=== PATIENT | male | born 1960 | race Caucasian/White ===

== ENCOUNTER → 2017-01-12 | Outpatient (CLI) | payer BC ==
--- NOTE | 2017-01-12 11:30 | CT ---
EXAMINATION TYPE: CT ChestAbdPelvis w con DATE OF EXAM: 01/12/2017 9:33 AM COMPARISON: Previous study dated 01/21/2016. HISTORY: Colon cancer CT DLP: 2362.80 mGycm Automated exposure control for dose reduction was used. TECHNIQUE: Helical acquisition through the abdomen and pelvis was obtained without oral contrast but following the intravenous administration of 100 ml mL of Omnipaque 300. The data was formatted in th e axial, coronal and sagittal projections. FINDINGS: The lungs are clear. There is no significant axillary, mediastinal or hilar adenopathy. There is no pleural or pericardial fluid. The heart is not enlarged. There is mild, bilateral gynecomastia. Within the abdomen, the liver is prominent measuring 19 cm. The spleen and gallbladder appear normal. Both adrenal glands appear normal. The pancreas is unremarkable. Both kidneys demonstrate function and appear morphologically normal. There is no significant retroperitoneal, iliac or inguinal adenopathy. There is been a previous sigmoid resection. The resection line appears unremarkable. The remainder of the colon appears normal. The appendix is not visualized. Small bowel loops appear normal. There is no free air and no free fluid identified. There is degenerative disc disease as well as hypertrophic spondylosis within the spine. There are de generative changes in both hips. No bony destructive lesion is seen. IMPRESSION: 1. NO EVIDENCE OF RECURRENT MALIGNANCY OR METASTATIC DISEASE. 2. MILD, BILATERAL GYNECOMASTIA. 3. MILD HEPATOMEGALY. 4. POSTOPERATIVE CHANGE. 5. DEGENERATIVE CHANGES IN THE HIPS AND SPINE.
== END | disposition home or self-care (01) ==
LOC: RADCTMAIN 08:59
PROVIDERS: ATTEND Internal Medicine Hematology & Oncology
DX: C18.7 Malignant neoplasm of sigmoid colon (principal); N62 Hypertrophy of breast; R16.0 Hepatomegaly, not elsewhere classified; Z98.890 Other specified postprocedural states
CPT/HCPCS: 71260; 74177; Q9967

== ENCOUNTER → 2018-01-11 | Outpatient (CLI) | payer BC ==
--- NOTE | 2018-01-11 10:29 | CT ---
EXAMINATION TYPE: CT ChestAbdPelvis w con DATE OF EXAM: 01/11/2018 COMPARISON: 01/12/2017 and 01/21/2016 HISTORY: Colon cancer CT DLP: 2310.30 mGycm. Automated Exposure Control for Dose Reduction was Utilized. CONTRAST: CT scan of the thorax, abdomen and pelvis is performed with IV Contrast, patient injected with 100 ml mL of Isovue 300. FINDINGS: LUNGS: There is a 3 mm pulmonary nodule within the right middle lobe, retrospectively unchanged from the exam of 01/21/2016 and should be considered benign. Focal pleural thickening along the right lung base laterally is also unchanged from the exam of 2016 retrospectively and should be considered benig n as well. No new pulmonary nodules or masses are seen. There is no pleural effusion or pneumothorax seen. The tracheobronchial tree is patent. MEDIASTINUM: There are no greater than 1 cm hilar or mediastinal lymph nodes. No pericardial effusi on is seen. Minimal coronary artery calcifications are noted. OTHER: There is redemonstration of multiple left-sided posterior well-corticated nonunited old rib fr actures at ribs 5, 6, and 7 on the left with reactive pleural thickening. This finding is unchanged f rom the prior retrospectively. No suspicious thoracic osseous lesion is seen. Minimal degenerative ch anges of the thoracic spine are noted. There is mild asymmetric right greater than left gynecomastia radiating from the retroareolar regions. LIVER/GB: The previously seen 6 mm hypoattenuated hepatic lesion within the medial aspect of segment 8 is unchanged from the exam of 01/21/2016 and favored to be benign. There is a wedge-shaped area of e nhancement within the inferior right hepatic lobe on series 3 image 65 that is retrospectively seen o n the exam of 01/21/2016 on series 3 image 59 appearing similar in morphology. Therefore stability fav ors arterial portal shunt rather than arterial enhancing hepatic lesion although continued surveillan ce is recommended. Gallbladder is unremarkable PANCREAS: No significant abnormality is seen. SPLEEN: No significant abnormality is seen. ADRENALS: No significant abnormality is seen. KIDNEYS: Too small to accurately characterize right renal hypoattenuating lesion is seen best on fatmata yed images series 5 image 44. This is unchanged from 2016 and therefore likely benign. No hydronephro sis or additional renal lesions are identified. BOWEL: Colonic anastomotic site within the sigmoid colon is seen without proximal bowel dilatation to indicate anastomotic stricture. Moderate amount retained colonic stool slightly limits evaluation of bowel. No dilated bowel is seen to suggest obstruction. Appendix is within normal limits and air-bernardo led. Small bowel is nondilated. GENITAL ORGANS: Prostate gland is slightly heterogenous containing few central zone calcifications. LYMPH NODES: No greater than 1cm abdominal or pelvic lymph nodes are appreciated. OSSEOUS STRUCTURES: No suspicious osseous lesions. Mild multilevel degenerative change of the spine. OTHER: Diastases recti and a very small subcentimeter fat filled and local hernia are noted. IMPRESSION: 1. Wedge-shaped area of enhancement within the right hepatic lobe is retrospectively similar morpholo gy to the exam of 2016 therefore favored to represent an arterial portal shunt rather than metastasis , however surveillance remains recommended. Second smaller hypoattenuated 6 mm hepatic lesion, althou gh too small to accurately characterize, is stable back to 2016 and favored to represent a small cyst . 2. No new evidence of adenopathy within the abdomen or pelvis or suspicious osseous lesions.
== END | disposition home or self-care (01) ==
LOC: RADCTMAIN 07:30
PROVIDERS: ATTEND Internal Medicine Hematology & Oncology
DX: C18.7 Malignant neoplasm of sigmoid colon (principal); K76.9 Liver disease, unspecified
CPT/HCPCS: 71260; 74177; Q9967

== ENCOUNTER 2019-01-03 06:57 | Day surgery (SDC) | payer BC ==
[2019-01-01 12:23] VITALS: BMI 39.6
[~2019-01-03 06:57] MED LIST: LACTATED RINGERS 1,000 ML IV SCH
[2019-01-03 07:16] VITALS: TEMP 97.7
[2019-01-03] MEDS ORDERED: PROPOFOL 10 MG/ML 20 ML VIAL IV ONE (07:29)
--- NOTE | 2019-01-03 07:32 | P.GSHP ---
History of Present Illness H&P Date: 01/03/19 Chief Complaint: Colon cancer screening Patient here today for screening colonoscopy. Patient has a personal history of sigmoid colon cancer in 2014. Patient underwent laparoscopic resection at that time. Doing well since then. No bowel complaints currently. Last colonoscopy 2016. Past Medical History Past Medical History: Cancer Additional Past Medical History / Comment(s): varicose veins, COLON CA History of Any Multi-Drug Resistant Organisms: None Reported Past Surgical History: Bowel Resection Additional Past Surgical History / Comment(s): colonoscopy, AND COLONOSCOPY WITH TATTOO Past Anesthesia/Blood Transfusion Reactions: No Reported Reaction Additional Past Anesthesia/Blood Transfusion Reaction / Comment(s): . Smoking Status: Former smoker - Past Family History Mother Family Medical History: Cancer Additional Family Medical History / Comment(s): breast Brother(s) Family Medical History: Cancer Additional Family Medical History / Comment(s): PROSTATE Medications and Allergies Home Medications Medication Instructions Recorded Confirmed Type No Known Home Medications 01/01/19 01/03/19 History Allergies Allergy/AdvReac Type Severity Reaction Status Date / Time No Known Allergies Allergy Verified 01/03/19 07:10 Surgical - Exam Vital Signs Temp Pulse Resp BP Pulse Ox 97.7 F 88 17 157/90 98 01/03/19 07:15 01/03/19 07:15 01/03/19 07:15 01/03/19 07:15 01/03/19 07:15 Physical exam: General: Well-developed, well-nourished HEENT: Normocephalic, sclerae nonicteric Abdomen: Nontender, nondistended Extremities: No edema Neuro: Alert and oriented Assessment and Plan (1) Colon cancer screening Narrative/Plan: Will proceed with colonoscopy at this time Current Visit: Yes Status: Acute Code(s): Z12.11 - ENCOUNTER FOR SCREENING FOR MALIGNANT NEOPLASM OF COLON SNOMED Code(s): 909107936
--- NOTE | 2019-01-03 07:53 | P.PCN ---
Date of Procedure: 01/03/19 Procedure(s) Performed: PREOPERATIVE DIAGNOSIS: Colon cancer screening, personal history of colon cancer POSTOPERATIVE DIAGNOSIS: Mild diverticulosis PROCEDURE: Colonoscopy ANESTHESIA: MAC SURGEON: Mckay Ansari M.D. SPECIMENS: None ENDOSCOPIC PROCEDURE: The patient was placed on the endoscopy table in the left decubitus position. The Olympus colonoscope was inserted into the anus and passed under direct visualization to the base of the cecum. The appendiceal orifice was visualized. From that point the scope was slowly withdrawn inspecting all surfaces carefully. There were no neoplastic inflammatory or polypoid lesions throughout the cecum, ascending, transverse, descending and rectum. The colorectal anastomosis was widely patent. There was mild diverticulosis present. Digital rectal examination was normal. The patient was taken to the recovery room in stable condition per anesthesia guidelines. RECOMMENDATIONS: Increase fiber. Follow-up colonoscopy 3 years.
[2019-01-03 08:00] VITALS: RESP 16
[2019-01-03 08:24] VITALS: BP 106/71; PULSE 72
== END 2019-01-03 08:38 | disposition home or self-care (01) ==
LOC: ORWHC2ENDO 06:57
PROVIDERS: ATTEND Surgery
DX: Z12.11 Encounter for screening for malignant neoplasm of colon (principal); Z85.038 Personal history of other malignant neoplasm of large intestine; K57.90 Diverticulosis of intestine, part unspecified, without perforation or abscess without bleeding; Z87.891 Personal history of nicotine dependence
CPT/HCPCS: J2704; G0105; 45378

== ENCOUNTER → 2019-01-24 | Outpatient (CLI) | payer BC ==
--- NOTE | 2019-01-24 11:01 | CT ---
EXAMINATION TYPE: CT ChestAbdPelvis w con DATE OF EXAM: 01/24/2019 COMPARISON: 01/11/2018 HISTORY: Colon CA CT DLP: 1901 mGycm CONTRAST: CT scan of the chest, abdomen and pelvis is performed with Oral Contrast and with IV Contrast, patien t injected with 100 mL of Isovue 300. CT Chest: LUNGS: The lungs are clear and free of infiltrate or atelectasis. No pulmonary nodule or mass is det ected. No pleural effusion or CT evidence of interstitial lung disease. MEDIASTINUM: Thoracic aorta is of normal caliber. The heart is not enlarged. No evidence for media stinal mass or adenopathy. HILAR STRUCTURES: No evidence for mass. No hilar adenopathy is appreciated. OTHER: Postoperative changes left chest wall. CONTRAST CT ABDOMEN AND PELVIS FINDINGS: LIVER/GB: No calcified gallstones. No distinct hepatic lesion. Small area of hyperdense enhancement periphery of the right hepatic lobe is smaller in size. Biliary tree is of normal caliber. PANCREAS: No inflammation. No distinct mass. SPLEEN: No splenic enlargement. No lesion seen. ADRENALS: No nodule. No thickening. KIDNEYS/BLADDER: No hydronephrosis. No nephrolithiasis. No distinct renal mass. BOWEL: Normal appendix. Normal bowel caliber. No inflammation. Postoperative changes rectosigmoid r egion. GENITAL ORGANS: No gross abnormality. LYMPH NODES: No greater than 1cm abdominal or pelvic lymph nodes are appreciated. AORTA: No significant abnormality. OSSEOUS STRUCTURES: No significant abnormality is seen. OTHER: No significant additional abnormality is seen. IMPRESSION: 1. No CT evidence to suggest suggest metastatic disease at this time.
== END ==
LOC: RADCTMAIN 08:01
PROVIDERS: ATTEND Internal Medicine Hematology & Oncology
DX: C18.7 Malignant neoplasm of sigmoid colon (principal)
CPT/HCPCS: 71260; 74177; Q9967 ×2

== ENCOUNTER → 2020-02-06 | Outpatient (CLI) | payer BC ==
--- NOTE | 2020-02-06 10:00 | CT ---
EXAMINATION TYPE: CT ChestAbdPelvis w con DATE OF EXAM: 02/06/2020 COMPARISON: 01/21/2016 and 01/24/2019 HISTORY: Colon cancer. Follow-up exam. CT DLP: 2494 mGycm. Automated Exposure Control for Dose Reduction was Utilized. CONTRAST: CT scan of the thorax, abdomen and pelvis is performed with IV Contrast, patient injected with 100 mL of Isovue 300. FINDINGS: LUNGS: 3 mm right middle lobe pulmonary nodule is again stable and should be considered benign as thi s is stable back to 2016. There is also a 3 mm left basilar pulmonary nodule on image 37 and a 2 mm r ight lower lobe pulmonary nodule on image 52 that are both unchanged from 01/24/2019 and retrospective ly from 2016 that should also be considered benign. No new suspicious nodule. MEDIASTINUM: There are no greater than 1 cm hilar or mediastinal lymph nodes. No pericardial effusi on is seen. OTHER: Multiple healed posterior left rib fractures. Minimal bilateral retroareolar gynecomastia. LIVER/GB: Wedge-shaped area of enhancement in the inferior right hepatic lobe is stable and could rep resent arterial portal shunting. The previously seen 6 mm lesion in segment 8 is not well identified on today's exam but previously stated to be stable back to 2016 favoring a benign etiology. No new jones spicious hepatic lesion seen. Gallbladder demonstrates no radiopaque calculi. PANCREAS: No significant abnormality is seen. SPLEEN: No significant abnormality is seen. ADRENALS: No significant abnormality is seen. KIDNEYS: Too small to accurately characterize punctate right renal lesion is stable. No hydronephrosi s of either kidney. BOWEL: Distal sigmoid colon anastomotic site without evidence of anastomotic stricture. Appendix is u nremarkable. Lipomatous hypertrophy of the ileocecal valve noted. LYMPH NODES: No greater than 1cm abdominal or pelvic lymph nodes are appreciated. OSSEOUS STRUCTURES: Mild to moderate degenerative change of the spine. IMPRESSION: No new suspicious findings in the chest, abdomen, or pelvis to suggest metastasis. Stable pulmonary nodules and wedge-shaped area of hyperattenuation in the liver in comparison to 2016 there fore representing benign etiologies. No new adenopathy.
== END | disposition home or self-care (01) ==
LOC: RADCTMAIN 07:26
PROVIDERS: ATTEND Internal Medicine Hematology & Oncology
DX: R91.8 Other nonspecific abnormal finding of lung field (principal); R93.2 Abnormal findings on diagnostic imaging of liver and biliary tract; C18.7 Malignant neoplasm of sigmoid colon
CPT/HCPCS: 71260; 74177; Q9967

== ENCOUNTER 2022-01-10 08:52 | Day surgery (SDC) | payer BC ==
[2022-01-09 13:03] VITALS: BMI 37.3
[2022-01-10 09:35] VITALS: RESP 16; TEMP 98.4
[2022-01-10] MEDS ORDERED: PROPOFOL 10 MG/ML 20 ML VIAL IV ONE (09:52)
[2022-01-10] MEDS ORDERED: LIDOCAINE 2% INJ 20 MG/ML (2 ML VIAL) ONE (09:52)
--- NOTE | 2022-01-10 09:53 | P.GSHP ---
History of Present Illness H&P Date: 01/10/22 Chief Complaint: History of colon cancer 61-year-old male with history of sigmoid colon cancer underwent sigmoid colectomy 7 years ago laparoscopically. Patient here today for follow-up colonoscopy. Last colonoscopy 3 years ago. No bowel complaints currently. Past Medical History Past Medical History: Cancer Additional Past Medical History / Comment(s): varicose veins, COLON CA 2016 received chemo History of Any Multi-Drug Resistant Organisms: None Reported Past Surgical History: Bowel Resection Additional Past Surgical History / Comment(s): mult colonoscopies Past Anesthesia/Blood Transfusion Reactions: No Reported Reaction Additional Past Anesthesia/Blood Transfusion Reaction / Comment(s): no hx blood transfusion Smoking Status: Former smoker - Past Family History Mother Family Medical History: Cancer Additional Family Medical History / Comment(s): breast Brother(s) Family Medical History: Cancer Additional Family Medical History / Comment(s): PROSTATE Medications and Allergies Home Medications Medication Instructions Recorded Confirmed Type No Known Home Medications 01/01/19 01/09/22 History Allergies Allergy/AdvReac Type Severity Reaction Status Date / Time No Known Allergies Allergy Verified 01/10/22 09:31 Surgical - Exam Vital Signs Temp Pulse Resp BP Pulse Ox 98.4 F 94 16 152/91 97 01/10/22 09:34 01/10/22 09:34 01/10/22 09:34 01/10/22 09:34 01/10/22 09:34 Physical exam: General: Well-developed, well-nourished HEENT: Normocephalic, sclerae nonicteric Abdomen: Nontender, nondistended Extremities: No edema Neuro: Alert and oriented Assessment and Plan (1) Colon cancer Narrative/Plan: Will proceed with colonoscopy at this time Current Visit: No Status: Acute Code(s): C18.9 - MALIGNANT NEOPLASM OF COLON, UNSPECIFIED SNOMED Code(s): 565849150
--- NOTE | 2022-01-10 10:12 | P.PCN ---
Date of Procedure: 01/10/22 Procedure(s) Performed: PREOPERATIVE DIAGNOSIS: History of colon cancer POSTOPERATIVE DIAGNOSIS: Mild diverticulosis PROCEDURE: Colonoscopy ANESTHESIA: MAC SURGEON: Mckay Ansari M.D. SPECIMENS: None ENDOSCOPIC PROCEDURE: The patient was placed on the endoscopy table in the left decubitus position. The Olympus colonoscope was inserted into the anus and passed under direct visualization to the base of the cecum. The appendiceal orifice was visualized. From that point the scope was slowly withdrawn inspecting all surfaces carefully. There were no neoplastic inflammatory or polypoid lesions throughout the cecum, ascending, transverse, descending and rectum. There was mild left-sided diverticulosis. The patient's anastomosis was widely patent. Digital rectal examination was normal. The patient was taken to the recovery room in stable condition per anesthesia guidelines. RECOMMENDATIONS: Resume diet. Follow-up colonoscopy 5 years.
[2022-01-10 10:31] VITALS: BP 99/64; PULSE 68
== END 2022-01-10 10:57 | disposition home or self-care (01) ==
LOC: ORWHC2ENDO 08:52
PROVIDERS: ATTEND Surgery
DX: Z86.010 Personal history of colon polyps (principal); Z90.49 Acquired absence of other specified parts of digestive tract; Z87.891 Personal history of nicotine dependence
CPT/HCPCS: 45378; J2704; J2001